=== PATIENT | female | born 1990 | race Two or more races ===

== ENCOUNTER 2023-02-12 13:54 | Emergency (ER) | payer SELFPAY ==
[2023-02-12 14:50] LABS: Urine Bacteria FEW /hpf (None Seen); Urine Blood 1+ /uL (Negative); Urine Hyaline Cast FEW /lpf (0 - 2); Urine Mucus FEW (None Seen); Urine Specific Gravity 1.029 (1.001-1.035); Urine WBC 1 /hpf (0 - 5)
[2023-02-12 15:03] LABS: Basophils # (auto) 0 10 ^3/uL (0-0.2); Basophils % (auto) 0.3 % (0.0-2.0); Eosinophils # (auto) 0.3 10 ^3/uL (0-0.8); Eosinophils % (auto) 3.4 % (0.0-7.0); Hematocrit 37.1 % (36.0-46.0); Hemoglobin 12.3 g/dL (12.2-16.2); Lymphocytes # (auto) 2.2 10 ^3/uL (0.4-5.4); Lymphocytes % (auto) 29.1 % (10.0-50.0); Mean Corpuscular Hgb Conc. 33.1 g/dL (32.0-36.0); Mean Corpuscular Volume 87.5 fL (80.0-100.0); Monocytes # (auto) 0.5 10 ^3/uL (0-1.3); Monocytes % (auto) 6.3 % (0.0-12.0); Neutrophils # (auto) 4.7 10 ^3/uL (1.6-8.6); Neutrophils % (auto) 60.9 % (37.0-80.0); Nucleated Red Blood Cells % 0.1 %; Red Blood Cells 4.24 10^6/uL (4.0-5.20); Red Cell Distribution Width 12.6 % (11.8-14.3); White Blood Cell 7.6 10^3/uL (4.4-10.8)
[2023-02-12 15:20] LABS: Albumin 3.9 g/dL (3.4-5.0); Calcium 8.8 mg/dL (8.5-10.1); Potassium 4.1 mmol/L (3.5-5.1)
[2023-02-12 15:25] LABS: BUN/Creatinine Ratio 22.5 (10.0-20.0); Bilirubin, Total 0.2 mg/dL (0.2-1.0)
[2023-02-12] MEDS ORDERED: SODIUM CHLORIDE 0.9% 1,000 ML IV ONE (16:45)
[2023-02-12 17:03] LABS: INR 0.94 (0.9-1.15); Partial Thromboplastin Time 30.2 sec (24.6-33.4)
[2023-02-12] MEDS ORDERED: ACET-1079 PO (23:48)
[2023-02-13] VITALS: BP 115/72
== END 2023-02-13 00:09 | disposition still patient (30) ==
LOC: EDBD → ER 13:54
DX: R10.2 Pelvic and perineal pain (principal); Z98.890 Other specified postprocedural states
CPT/HCPCS: 36415; 76801; 76817; 80053; 81001; 84702; 85025; 85610; 85730; 86850; 86900; 86901; 96360; 99285; J7030

== ENCOUNTER 2023-02-14 12:30 | Emergency (ER) | payer MEDICAID ==
[~2023-02-14] VITALS: Ht 154.9 cm; Wt 63.4 kg
[~2023-02-14 12:30] MED LIST: ACET-1079 PO
[2023-02-14 19:51] VITALS: BP 112/75
== END 2023-02-14 19:53 | disposition home or self-care (01) ==
LOC: ER 12:30 → EDBD 12:30 → ER 19:53
DX: O20.8 Other hemorrhage in early pregnancy (principal); R10.2 Pelvic and perineal pain; Z3A.01 Less than 8 weeks gestation of pregnancy
CPT/HCPCS: 36415; 76801; 76817; 84702